=== PATIENT | female | born 1955 | race Two or more races ===

== ENCOUNTER → 2016-08-28 | Outpatient (CLI) | payer BC ==
--- NOTE | 2016-08-28 10:23 | RAD ---
DATE: 08/28/2016 EXAM: DIGITAL DIAGNOSTIC LT, BREAST LEFT HISTORY: Breast lump COMPARISON: 12/15/2015 This study was interpreted with the benefit of Computerized Aided Detection (CAD). The breast parenchyma shows scattered fibroglandular densities. Breast parenchyma level B. FINDINGS: A BB was placed on the skin surface over the area of palpable concern at the 9:00 location. The mammograms demonstrate a poorly marginated area of slightly increased density just beneath the skin surface at this level measuring approximately 5 x 3 mm. This is best seen on the cc view. There are several small associated microcalcifications the largest of which appear to be smooth and rounded. These calcifications and this vague density do appear to have been present in retrospect on the 12/15/2015 study. Tomosynthesis images were reportedly performed at the time of the previous study, however, those are unavailable at this time for correlation. No other unusual left breast opacities are currently seen. Left breast ultrasound, 08/28/2016: A targeted ultrasound of the area of clinical concern was performed. There is a small irregular hypoechoic nodule at this level measuring 6 x 6 x 4 mm. It appears to involve the posterior margin of the skin. There is an ill-defined rim of increased echogenicity. There is vascularity in or directly adjacent to this process. While this may be an inflammatory lesion such as a chronically inflamed or infected epidermal inclusion cyst, a neoplastic etiology cannot be excluded. Surgical resection is suggested. Percutaneous biopsy of a possible epidermal inclusion cyst is not generally recommended due to the likelihood of increased inflammation related to leakage of materials. IMPRESSION: Small superficial suspicious breast lesion as described above. Surgical excision is suggested. Note: The reliability technologist informed the patient's of our recommendation at the time of the procedure. BI-RADS CATEGORY: 4 SUSPICIOUS ABNORMALITY- BIOPSY SHOULD BE CONSIDERED RECOMMENDED FOLLOW-UP: BIO BIOPSY RECOMMENDED PQRS compliance statement: Patient information was entered into a reminder system with a target due date for the next mammogram. Mammography is a sensitive method for finding small breast cancers, but it does not detect them all and is not a substitute for careful clinical examination. A negative mammogram does not negate a clinically suspicious finding and should not result in delay in biopsying a clinically suspicious abnormality. "Our facility is accredited by the [employer] Mammography Program."
== END | disposition home or self-care (01) ==
LOC: MAMMO 08:11
PROVIDERS: ATTEND Family Medicine
DX: N63 Unspecified lump in breast (principal); N64.4 Mastodynia; N64.89 Other specified disorders of breast
CPT/HCPCS: 76641; G0206; 77065